=== PATIENT | male | born 1960 | race Caucasian/White ===

== ENCOUNTER 2017-01-09 11:18 | Outpatient (RCR) | payer OTHER | END 2017-01-25 09:52 | disposition still patient (30) | LOC: WSOH 11:18 | DX: L00-L99 Diseases of the skin and subcutaneous tissue (principal); X50.3XXA Overexertion from repetitive movements, initial encounter; Y99.0 Civilian activity done for income or pay ==

== ENCOUNTER 2017-02-09 12:47 | Outpatient (RCR) | payer OTHER | END 2017-02-27 14:12 | disposition home or self-care (01) | LOC: WSOH 12:47 | DX: Z09 Encounter for follow-up examination after completed treatment for conditions other than malignant neoplasm (principal); L00-L99 Diseases of the skin and subcutaneous tissue; Z88.8 Allergy status to other drugs, medicaments and biological substances ==

== ENCOUNTER 2018-10-19 10:05 | Outpatient (RCR) | payer OTHER | END 2019-01-17 | disposition home or self-care (01) | LOC: WSOH | DX: H92.02 Otalgia, left ear (principal); H90.72 Mixed conductive and sensorineural hearing loss, unilateral, left ear, with unrestricted hearing on the contralateral side; H61.22 Impacted cerumen, left ear; F17.210 Nicotine dependence, cigarettes, uncomplicated ==